=== PATIENT | male | born 1990 | race Caucasian/White ===

== ENCOUNTER 2016-12-11 17:09 | Observation (INO) | payer OTHER ==
[~2016-12-11] VITALS: Ht 188 cm; Wt 100.2 kg
[2016-12-11] VITALS (8 sets, daily range): BP systolic 94–131; BP diastolic 43–69; PULSE 50–96; TEMP 97.8–99.1
[2016-12-12 00:45] VITALS: BP 105/48; PULSE 70; TEMP 97.9
[2016-12-12 05:32] VITALS: BP 105/45; PULSE 52; TEMP 98.7
[2016-12-12 09:44] VITALS: BP 104/44; PULSE 60; TEMP 97.9
[2016-12-12 14:59] VITALS: BP 118/51; PULSE 75; TEMP 98.1
[2016-12-12 18:00] VITALS: BP 112/52; PULSE 73; TEMP 98.9
[2016-12-12 21:14] VITALS: BP 125/48; PULSE 64; TEMP 98.2
[2016-12-13 02:09] VITALS: BP 106/51; PULSE 65; TEMP 98.2
[2016-12-13 04:57] VITALS: BP 111/49; PULSE 61; TEMP 98
[2016-12-13 09:58] VITALS: BP 104/58; PULSE 57; TEMP 97.8
== END 2016-12-13 10:58 | disposition home health service (06) ==
LOC: SURG 17:09
DX: S31.31XA Laceration without foreign body of scrotum and testes, initial encounter (principal); S30.22XA Contusion of scrotum and testes, initial encounter; W55.22XA Struck by cow, initial encounter; Y92.79 Other farm location as the place of occurrence of the external cause
CPT/HCPCS: G0378; G0379; J0690; J1100; J1885; J2270; J2405; J2704; J2765; J3010